=== PATIENT | male | born 2005 | race Two or more races ===

== ENCOUNTER 2023-11-02 13:48 | Emergency (ER) | payer OTHER ==
[~2023-11-02] VITALS: Ht 177.8 cm; Wt 66.4 kg
[2023-11-02 16:38] VITALS: BP 126/84; PULSE 60; RESP 18; TEMP 98.8; O2SAT 100
== END 2023-11-02 16:39 | disposition home or self-care (01) ==
LOC: ER 13:48
DX: M85.811 Other specified disorders of bone density and structure, right shoulder (principal)
CPT/HCPCS: 73030; 73060